=== PATIENT | male | born 1955 | race Caucasian/White ===

== ENCOUNTER → 2019-01-19 10:42 | Outpatient (CLI) | payer MEDICARE ==
[~2019-01-19 10:42] MED LIST: BAYER CHEWABLE81 MG PO; COMBIVENT RESPIM4 GM INH; FLUTICASONE PRO16 GM NASAL; HYDROCHLOROT TAB 12. PO; IPRATROPIUM BRO15 M1 NASAL; MYSOLINE 50 MG50 MG PO; NORVASC5 MG PO; PERCOCET 7.5/321 TAB PO; PROTONIX40 MG PO; SINGULAIR10 MG PO; SMZ-TMP DS 800-1 TAB PO; SYMBICORT 16010.2 GM INH; TESTOST CYP INJ 200 IM; VALIUM5 MG PO; ZOLOFT100 MG PO
[2019-02-06 07:23] VITALS: BMI 28.1
== END | disposition home or self-care (01) ==
LOC: D.LAB 10:42
PROVIDERS: ATTEND Urology
DX: N40.0 Benign prostatic hyperplasia without lower urinary tract symptoms (principal)

== ENCOUNTER 2019-02-06 05:56 | Day surgery (SDC) | payer MEDICARE ==
[~2019-02-06] VITALS: Ht 172.7 cm; Wt 83.9 kg
[2019-02-06 06:25] LABS: ANION GAP 10.6 mmol/L (8-16); CALCIUM 9.7 mg/dL (8.5-10.1); CARBON DIOXIDE 30.5 mmol/L (21.0-32.0); CREATININE - SERUM 1.1 mg/dL (0.6-1.3); POTASSIUM - SERUM 4.1 mmol/L (3.5-5.1)
[2019-02-06 06:32] LABS: HEMATOCRIT 45.9 % (42.0-54.0); HEMOGLOBIN 15.6 g/dL (13.5-17.5); MCH 33.3 pg (26.0-34.0); MCV 98.1 fL (80.0-100.0); MEAN PLATELET VOLUME 9.1 fL (7.4-10.4); RBC 4.68 10x6/uL (4.20-6.10); RDW 13.5 % (11.5-14.5); WBC 9.7 10x3/uL (4.8-10.8)
[2019-02-06 07:23] VITALS: BP 135/85; Ht 172.7 cm; Wt 83.9 kg
--- NOTE | 2019-02-06 09:37 | NUR ---
0994 DR. JUAN JOSE MICHELLE. [place] DIET SERVED. PT SPOKE WITH ON PHONE TO ARRANGE HER COMING AND PICKING HIM UP.
--- NOTE | 2019-02-06 13:14 | OP ---
PATIENT NAME: TYRONE PRIETO II MEDICAL RECORD: [id number] :55 LOCATION:D.OPS ADMISSION DATE: SURGEON: CRISTHIAN INGRAM MD DATE OF OPERATION: 02/06/2019 SURGEON: Cristhian Ingram MD ANESTHESIA: TIVA by Ramona Marie CRNA. DIAGNOSES: Elevated PSA of 3.08, bladder outlet obstruction. PROCEDURE: Cystoscopy, transrectal ultrasound, and prostate biopsy. FINDINGS: On cystoscopy, tight bladder neck with nonobstructive lateral lobes. Single ureteral orifices bilaterally with no bladder tumors. Bladder was trabeculated. Transrectal ultrasound shows a 20.5 gram prostate with intraprostatic stones on the left side. SPECIMENS: Prostate biopsy cores. BLOOD LOSS: None. CLINICAL HISTORY: This is a 63-year-old male, who has bladder outlet obstruction symptoms. He has had 4 prostate biopsies in the past, the last of which was 9 years ago. The results were benign. His current PSA is 3.08. He has been on testosterone supplementation for the past 5 months. He has quite significant voiding symptoms and he has been on finasteride and tamsulosin. He comes today to have a prostate biopsy. If the biopsy is benign. He wishes to have the UroLift procedure done. HE IS ALLERGIC TO PENICILLIN AND WELLBUTRIN. He was given Levaquin non destructive testing inspector to the OR. DESCRIPTION OF PROCEDURE: The patient was given IV sedation. He was placed into lithotomy position and prepped and draped. Cystoscopy was performed using a 17-Guamanian scope. Findings are as outlined above. The bladder was then emptied through the cystoscope sheath and the scope was removed. We then introduced the transrectal ultrasound probe. Prostate size measurements were obtained. The size was estimated at 20.5 grams. Sextant biopsies were then obtained. At least 3 cores were obtained from each sextant. Once all the specimens were obtained, then the procedure was terminated. I will see the patient in followup next week to review the pathology results with him. TRANSINT:[id number] Voice Confirmation ID: [id number] DOCUMENT ID: [id number] CRISTHIAN INGRAM MD at 1314 CC: [id number] DICTATION DATE: 02/06/19926 FLAKE CUTTER OPERATOR: 02/06/19 1205 [facility] 02/06/19 [facility] [address] [facility] [place] [address]
== END 2019-02-06 10:00 | disposition home or self-care (01) ==
LOC: D.OPS 05:56 → D.PAN 08:00 → D.OPS 08:00 → D.PAN 09:30 → D.OPS 10:00
PROVIDERS: Anesthesiology; ATTEND Urology
DX: R97.20 Elevated prostate specific antigen [PSA] (principal); N32.0 Bladder-neck obstruction; N40.1 Benign prostatic hyperplasia with lower urinary tract symptoms; Z87.442 Personal history of urinary calculi; K21.9 Gastro-esophageal reflux disease without esophagitis; J43.9 Emphysema, unspecified; I10 Essential (primary) hypertension

== ENCOUNTER 2019-02-20 07:46 | Day surgery (SDC) | payer BC ==
[2019-02-19 08:07] LABS: HEMATOCRIT 46.4 % (42.0-54.0); HEMOGLOBIN 16.2 g/dL (13.5-17.5); MCH 34.2 pg (26.0-34.0); MCHC 34.9 g/dL (31.0-37.0); MCV 97.9 fL (80.0-100.0); MEAN PLATELET VOLUME 8.6 fL (7.4-10.4); RBC 4.74 10x6/uL (4.20-6.10); RDW 13.6 % (11.5-14.5); WBC 7.3 10x3/uL (4.8-10.8)
[2019-02-19 08:15] LABS: CALC OSMOLALITY 279 mosm/kg (275-300); CALCIUM 10.3 mg/dL (8.5-10.1); CARBON DIOXIDE 32.4 mmol/L (21.0-32.0); CHLORIDE - SERUM 100 mmol/L (98-107); CREATININE - SERUM 0.9 mg/dL (0.6-1.3); GLUCOSE 104 mg/dL (74-106); POTASSIUM - SERUM 4.1 mmol/L (3.5-5.1); SODIUM 141 mmol/L (136-145); UREA NITROGEN 10 mg/dL (7-18); eGFR NON AFRICAN AMERICAN > 90 mL/min (90-120)
[~2019-02-20] VITALS: Ht 172.7 cm; Wt 84.4 kg
[2019-02-20 08:45] VITALS: Ht 172.7 cm; Wt 84.4 kg
--- NOTE | 2019-02-20 12:45 | NUR ---
1150 IV DC'D. CATHETER TIP INTACT. NO BLEEDING AT SITE. BANDAID APPLIED. PT ANXIOUS AND READY TO GO HOME. AAOX3
--- NOTE | 2019-03-09 17:12 | OP ---
PATIENT NAME: TYRONE PRIETO II MEDICAL RECORD: [id number] :55 LOCATION:D.OPS ADMISSION DATE: SURGEON: CRISTHIAN INGRAM MD DATE OF OPERATION: 02/20/2019 SURGEON: Cristhian Ingram MD ANESTHESIA: TIVA. DIAGNOSIS: Obstructive BPH. PROCEDURE: UroLift times 4 in box configuration around the bladder neck. FINDINGS: Tight bladder neck. BLOOD LOSS: None. CLINICAL HISTORY: This is a 63-year-old male, who has obstructive voiding symptoms. He has been on testosterone supplementation in the past. He had significant voiding symptoms in spite of being on finasteride and tamsulosin. His PSA was elevated at 3.08 and he had a prostate biopsy performed on 02/06/2019. The pathology on that was benign. He comes today to have the UroLift procedure done. His prostate size is 20.5 grams on transrectal ultrasound. DESCRIPTION OF PROCEDURE: The patient was given IV sedation. He was placed into the lithotomy position and prepped and draped. The UroLift scope was introduced. At 1.5 cm distal to the bladder neck, 4 UroLift units were deployed. One on each side was placed at the end of the anterolateral sulcus. One on each side was placed at the mid urethral level. This resulted in a nice rectangle, which opened up the bladder neck. The bladder was left partly full for a voiding trial. TRANSINT:[id number] Voice Confirmation ID: [id number] DOCUMENT ID: [id number] CRISTHIAN INGRAM MD at 1712 CC: [id number] DICTATION DATE: 03/09/19 0845 MECHANICAL SYSTEMS ENGINEER: 03/09/19 1247 [facility] 02/20/[address] [address]
== END 2019-02-20 12:05 | disposition home or self-care (01) ==
LOC: D.OPS 07:46 → D.PAN 09:25 → D.OPS 09:30 → D.PAN 10:45 → D.OPS 11:30 → D.PAN 11:30 → D.OPS 12:05
PROVIDERS: Anesthesiology; ATTEND Urology
DX: N40.1 Benign prostatic hyperplasia with lower urinary tract symptoms (principal); I10 Essential (primary) hypertension; J44.9 Chronic obstructive pulmonary disease, unspecified